=== PATIENT | male | born 1960 | race American Indian/Alaskan Native ===

== ENCOUNTER 2019-11-01 09:46 | Inpatient (IN) | payer OTHER ==
[2019-11-01] MEDS ORDERED: ASPIRIN 325 MG TAB PO ONE (10:09)
--- NOTE | 2019-11-01 10:23 | Emergency Department Report ---
ED Chest Pain HPI - General Chief Complaint: Chest Pain Stated Complaint: CHEST PAIN Time Seen by Provider: 11/01/19 10:15 Source: patient Mode of arrival: Ambulatory Limitations: No Limitations - History of Present Illness Initial Comments: Patient is a 59-year-old gentleman who is presenting with chest discomfort for the last 4 days. Patient states that he is mostly feeling the pain while at work. 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 States he does not have pain all the time with pushing move motion. States pain is slight when he is walking. Pain at its worst was a 6 out of 10 in severity. States that he took off from work yesterday and laid in bed most of the day and felt fine. Patient went back to work today and started having the discomfort. He is denying any shortness of breath cough cold congestion fevers chills nausea vomiting or diarrhea. Patient has no past medical history that he knows of. Patient has not had this complaint in the past. - Related Data Allergies Allergy/AdvReac Type Severity Reaction Status Date / Time No Known Allergies Allergy Unverified 11/01/19 09:49 Heart Score - HEART Score History: Moderately suspicious EKG: Non-specific Age: 45-65 Risk factors: 1-2 risk factors Troponin: 1-3x normal limit HEART Score: 5 ED Review of Systems ROS: Stated complaint: CHEST PAIN Other details as noted in HPI Comment: All other systems reviewed and negative ED Past Medical Hx - Past Medical History Previous Medical History?: No - Surgical History Past Surgical History?: Yes Additional Surgical History: right inquinal hernia - Social History Smoking Status: Never Smoker Substance Use Type: None ED Physical Exam - General Limitations: No Limitations General appearance: alert, in no apparent distress - Head Head exam: Present: atraumatic, normocephalic - Eye Eye exam: Present: normal appearance - ENT ENT exam: Present: normal orophraynx, mucous membranes moist - Neck Neck exam: Present: normal inspection - Respiratory Respiratory exam: Present: normal lung sounds bilaterally. Absent: respiratory distress, wheezes, rales, rhonchi, chest wall tenderness - Cardiovascular Cardiovascular Exam: Present: regular rate, normal rhythm. Absent: normal heart sounds, systolic murmur, diastolic murmur, rubs, gallop - GI/Abdominal GI/Abdominal exam: Present: soft, normal bowel sounds. Absent: distended, tenderness, guarding, rebound - Rectal Rectal exam: Present: deferred - Extremities Exam Extremities exam: Present: normal inspection - Back Exam Back exam: Present: normal inspection - Neurological Exam Neurological exam: Present: alert, oriented X3 - Psychiatric Psychiatric exam: Present: normal affect, normal mood - Skin Skin exam: Present: warm, dry, intact, normal color. Absent: rash ED Course Vital Signs 11/01/19 09:51 Temperature 98.7 F Pulse Rate 106 H Respiratory 18 Rate Blood Pressure 152/90 O2 Sat by Pulse 99 Oximetry TEJ score - Tej Score Age > 65: (0) No Aspirin use within the Past 7 Days: (0) No 3 or more CAD Risk Factors: (0) No 2 or more Angina events in past 24 hrs: (1) Yes Known CAD with more than 50% Stenosis: (0) No Elevated Cardiac Markers: (1) Yes ST Deviation Greater than 0.5mm: (0) No TEJ Score: 2 ED Medical Decision Making - Lab Data Result diagrams: 11/01/19 10:24 11/01/19 10:24 Lab Results 11/01/19 11/01/19 Range/Units 10:24 10:24 WBC 10.0 (4.5-11.0) K/mm3 RBC 4.88 (3.65-5.03) M/mm3 Hgb 15.7 H (11.8-15.2) gm/dl Hct 46.0 H (35.5-45.6) % MCV 94 (84-94) fl MCH 32 (28-32) pg MCHC 34 (32-34) % RDW 12.1 L (13.2-15.2) % Plt Count 164 (140-440) K/mm3 Lymph % (Auto) 10.4 L (13.4-35.0) % Gordon % (Auto) 4.9 (0.0-7.3) % Eos % (Auto) 0.8 (0.0-4.3) % Baso % (Auto) 0.3 (0.0-1.8) % Lymph # (Auto) 1.0 L (1.2-5.4) K/mm3 Gordon # (Auto) 0.5 (0.0-0.8) K/mm3 Eos # (Auto) 0.1 (0.0-0.4) K/mm3 Baso # (Auto) 0.0 (0.0-0.1) K/mm3 Seg Neutrophils % 83.6 H (40.0-70.0) % Seg Neutrophils # 8.4 H (1.8-7.7) K/mm3 Sodium 139 (137-145) mmol/L Potassium 4.1 (3.6-5.0) mmol/L Chloride 99.2 (98-107) mmol/L Carbon Dioxide 24 (22-30) mmol/L Anion Gap 20 mmol/L BUN 12 (9-20) mg/dL Creatinine 0.9 (0.8-1.3) mg/dL Estimated GFR > 60 ml/min BUN/Creatinine Ratio 13 % Glucose 163 H (75-100) mg/dL Calcium 9.6 (8.4-10.2) mg/dL Troponin T 0.313 H* (0.00-0.029) ng/mL - EKG Data -: EKG Interpreted by Tn - EKG Data 11/01/19 11:22 EKG shows a sinus rhythm with a rate of 99. [place] is normal intervals are normal. There is no ST segment elevation or depression. He does have Q waves in the anterior septal leads. Time of interpretation 1005 - Radiology Data Patient: ERNIE MENDIETA MR#: [id number] : 1960 Acct:[id number] Age/Sex: 59 / M ADM Date: 11/01/19 Loc: ED Attending Dr: Ordering Physician: MILLIE BROWNLEE MD Date of Service: 11/01/19 Procedure(s): XR chest 1V ap Accession Number(s): [id number] cc: MILLIE BROWNLEE MD Fluoro Time In Minutes: CHEST 1 VIEW 1027 INDICATION / CLINICAL INFORMATION: Chest Pain COMPARISON: None available. FINDINGS: SUPPORT DEVICES: None HEART / MEDIASTINUM: No significant abnormality. LUNGS / PLEURA: Poor degree of inspiration is seen. Slight right basilar atelectatic changes are noted. No definite areas of consolidation are seen. No pneumothorax. ADDITIONAL FINDINGS: No significant additional findings. 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 I asked the patient to push me away during the physical exam and he says there is no pain with movement of his arms with pushing while stationary is only when he is walking and pushing his tool cart. Patient is EKG did not show acute MD however the patient did have elevation of his troponin. Cardiology was consulted and will see the patient in the emergency department. Patient started on heparin drip. Patient has some minimal pain still in the emergency department and had a nitro paste placed on his anterior chest was given a dose of morphine. Patient given aspirin on arrival. Patient be admitted to the hospitalist service. Critical Care Time: Yes (30) Critical care attestation.: If time is entered above; I have spent that time in minutes in the direct care of this critically ill patient, excluding procedure time. ED Disposition Clinical Impression: NSTEMI (non-ST elevated myocardial infarction), Hyperglycemia Disposition: DC-09 OP ADMIT IP TO THIS HOSP Is pt being admited?: Yes Does the pt Need Aspirin: No Condition: Stable Time of Disposition: 11:25
--- NOTE | 2019-11-01 10:44 | XRay Report ---
CHEST 1 VIEW 1027 INDICATION / CLINICAL INFORMATION: Chest Pain COMPARISON: None available. FINDINGS: SUPPORT DEVICES: None HEART / MEDIASTINUM: No significant abnormality. LUNGS / PLEURA: Poor degree of inspiration is seen. Slight right basilar atelectatic changes are note d. No definite areas of consolidation are seen. No pneumothorax. ADDITIONAL FINDINGS: No significant additional findings. IMPRESSION: No significant acute abnormality Signer Name: Jesus Le MD Signed: 11/01/2019 10:39 AM Workstation Name: [id number]
[2019-11-01 10:48] LABS: Basophils % (Auto) 0.3 % (0.0-1.8); Eosinophils # (Auto) 0.1 K/mm3 (0.0-0.4); Eosinophils % (Auto) 0.8 % (0.0-4.3); Hemoglobin 15.7 gm/dl (11.8-15.2); Lymphocytes % (Auto) 10.4 % (13.4-35.0); Mean Corpuscular HGB Conc 34 % (32-34); Mean Corpuscular Volume 94 fl (84-94); Monocytes # (Auto) 0.5 K/mm3 (0.0-0.8); Monocytes % (Auto) 4.9 % (0.0-7.3); Platelet Count 164 K/mm3 (140-440); Red Blood Count 4.88 M/mm3 (3.65-5.03); Red Cell Distribution Width 12.1 % (13.2-15.2)
[2019-11-01 11:05] LABS: BUN/Creatinine Ratio 13; Blood Urea Nitrogen 12 mg/dL (9-20); Calcium 9.6 mg/dL (8.4-10.2); Hemolysis Index 6
[2019-11-01] MEDS ORDERED: HEPARIN 10,000 UNITS/10 ML VIAL IV ONE (11:15)
[2019-11-01] MEDS ORDERED: ONDANSETRON 4 MG/2 ML INJ IV ONE (11:19)
[2019-11-01] MEDS ORDERED: NITROGLYCERIN 2% OINT 1 GM TP ONE (11:19)
[2019-11-01] MEDS ORDERED: MORPHINE 4 MG/1 ML INJ IV ONE (11:19)
[2019-11-01 11:23] LABS: HDL Cholesterol 43 mg/dL (40-59); LDL Cholesterol,Direct 155 mg/dL (50-130)
[2019-11-01] MEDS: HEPARIN/ 0.45% NACL DRIP 25,000 UNIT/500 ML BAG IV SCH ×2 (11:46→17:15)
--- NOTE | 2019-11-01 12:19 | Consultation ---
History of Present Illness Consult date: 11/01/19 Requesting physician: MILLIE BROWNLEE Consult reason: other (NSTEMI) History of present illness: Pt is a 59 y.o. AA male with no known significant past medical hx who presented with complaints of intermittent substernal chest pain since x 3 days prior to arrival. Pt describes pain as a burning sensation and states it is worse with exertion and relieved by rest. He also notes mild SOB. Pt denies any additional cardiac complaints. No recent fever/chills. Michelle significantly elevated upon arrival. ECG reveals no acute ischemic changes. No acute findings on CXR. No previous cardiac workup available for review. Past History Past Medical History: No medical history Past Surgical History: Other (R inguinal hernia repair > 10 yrs ago) Social history: denies: smoking, alcohol abuse Family history: no significant family history Medications and Allergies Allergies Allergy/AdvReac Type Severity Reaction Status Date / Time No Known Allergies Allergy Unverified 11/01/19 09:49 Active Meds: Active Medications Heparin Sodium/Sodium Chloride (Heparin/ 0.45% Nacl-25,000 Unit/500 Ml) 25,000 unit in 500 mls @ 20 mls/hr IV TITRATE MARLA; Protocol Last Admin: 11/01/19 11:46 Dose: 1,000 units/hr, 20 mls/hr Documented by: Review of Systems Constitutional: no fever, no chills, no sweats, no fatigue Ears, nose, mouth and throat: no nasal congestion, no sore throat Cardiovascular: chest pain, shortness of breath, no orthopnea, no palpitations, no edema, no syncope, no lightheadedness, no dyspnea on exertion, no paroxysmal nocturnal dyspnea, no claudication Respiratory: shortness of breath, no cough, no dyspnea on exertion Gastrointestinal: no abdominal pain, no nausea, no vomiting, no diarrhea, no constipation Genitourinary Male: no dysuria, no flank pain Musculoskeletal: no neck stiffness, no neck pain, no myalgias Integumentary: no rash, no wounds Neurological: no head injury, no paralysis, no weakness, no parathesias, no numbness, no tingling, no seizures, no syncope, no vertigo, no headaches Endocrine: no cold intolerance, no heat intolerance, no polydipsia, no polyuria Hematologic/Lymphatic: no easy bruising, no easy bleeding Allergic/Immunologic: no urticaria Physical Examination Last Vital Signs Temp 98.7 F 11/01/19 09:51 Pulse 91 H 11/01/19 12:00 Resp 13 11/01/19 12:00 BP 128/81 11/01/19 12:00 Pulse Ox 99 11/01/19 09:51 General appearance: no acute distress HEENT: Positive: EOMI, Normocephaly, Mucus Membranes Moist Neck: Positive: neck supple, trachea midline. Negative: JVD/HJR Cardiac: Positive: Reg Rate and Rhythm, S1/S2. Negative: Audible Murmur Lungs: Positive: clear to auscultation Neuro: Positive: Grossly Intact Abdomen: Positive: Soft, Active Bowel Sounds. Negative: Tender Skin: Negative: Rash Musculoskeletal: No Pain, Normal Range of Motion Extremities: Present: upper extr. pulses, lower extr. pulses. Absent: edema Results 11/01/19 10:24 11/01/19 10:24 Lipids 11/01/19 Range/Units 10:24 Triglycerides 168 H (2-149) mg/dL Cholesterol 215 H (50-199) mg/dL HDL Cholesterol 43 (40-59) mg/dL Cholesterol/HDL Ratio 5.00 % CBC 11/01/19 Range/Units 10:24 WBC 10.0 (4.5-11.0) K/mm3 RBC 4.88 (3.65-5.03) M/mm3 Hgb 15.7 H (11.8-15.2) gm/dl Hct 46.0 H (35.5-45.6) % Plt Count 164 (140-440) K/mm3 Lymph # (Auto) 1.0 L (1.2-5.4) K/mm3 [place] # (Auto) 0.5 (0.0-0.8) K/mm3 Eos # (Auto) 0.1 (0.0-0.4) K/mm3 Baso # (Auto) 0.0 (0.0-0.1) K/mm3 Comprehensive Metabolic Panel 11/01/19 Range/Units 10:24 Sodium 139 (137-145) mmol/L Potassium 4.1 (3.6-5.0) mmol/L Chloride 99.2 (98-107) mmol/L Carbon Dioxide 24 (22-30) mmol/L BUN 12 (9-20) mg/dL Creatinine 0.9 (0.8-1.3) mg/dL Glucose 163 H (75-100) mg/dL Calcium 9.6 (8.4-10.2) mg/dL - Imaging and Cardiology Echo: pending Cardiac cath: pending EKG: report reviewed, image reviewed - EKG Interpretation EKG: no acute changes EKG interpretations - EKG Sinus rhythms and dysrhythmias: sinus rhythm Repolarization changes or abnormalities: nonspecific abnormality, ST segment, and/or T wave Assessment and Plan Plan for [facility] Mon AM. NPO after midnight Sun. Initiate heparin drip. Continue until 4 hours prior to planned procedure. Initiate bASA and statin. Obtain echo. Further recommendations to follow per hospital course. Pt seen in conjunction with Dr. Sanchez, who agrees with the assessment and plan of care. - Patient Problems (1) NSTEMI (non-ST elevated myocardial infarction) Current Visit: Yes Status: Acute (2) HLD (hyperlipidemia) Current Visit: Yes Status: Chronic Qualifiers: Hyperlipidemia type: mixed hyperlipidemia Qualified Code(s): E78.2 - Mixed hyperlipidemia (3) Hyperglycemia Current Visit: Yes Status: Acute
[2019-11-01 12:26] LABS: INR 1.02 (0.87-1.13)
[2019-11-01 12:27] LABS: Partial Thromboplastin Time 27.4 Sec. (24.2-36.6)
[2019-11-01] MEDS ORDERED: SODIUM CHLORIDE 0.9% 500 ML 500 ML IV SCH (13:00)
--- NOTE | 2019-11-01 13:05 | History and Physical Report ---
History of Present Illness Date of examination: 11/01/19 Date of admission: 11/01/2019 Chief complaint: Chest pain History of present illness: 59-year-old male with no previous medical history admitted with a chief complaint of chest pain. Patient stated that about 2 days prior to presentation, he started having chest pain while at work. Chest pain persisted and the next day, he could not go to work due to chest pain. He returned to work on day of presentation, and noted that he was having severe chest pain with minimal exertion. He denies any shortness of breath or palpitation. He felt like something was wrong so he decided to come to the hospital for further evaluation. He denies any prior history of hypertension, diabetes, coronary artery disease. He denies any known family history of coronary artery disease. Here in the ER, his EKG showed no acute ischemic changes. His troponin was 0.03. Cardiology was consulted for further evaluation. Patient was admitted for management of NSTEMI. Past History Past Medical History: No medical history Past Surgical History: Other (R inguinal hernia repair > 10 yrs ago) Social history: no significant social history. denies: smoking, alcohol abuse Family history: no significant family history Medications and Allergies Allergies Allergy/AdvReac Type Severity Reaction Status Date / Time No Known Allergies Allergy Unverified 11/01/19 09:49 Active Meds: Active Medications Aspirin (Baby Aspirin) 81 mg PO QDAY MARLA Atorvastatin Calcium (Lipitor) 40 mg PO QHS MARLA Heparin Sodium/Sodium Chloride (Heparin/ 0.45% Nacl-25,000 Unit/500 Ml) 25,000 unit in 500 mls @ 20 mls/hr IV TITRATE MARLA; Protocol Stop: 11/03/19 04:00 Last Admin: 11/01/19 11:46 Dose: 1,000 units/hr, 20 mls/hr Documented by: Sodium Chloride (Nacl 0.9% 500 Ml) 500 mls @ 50 mls/hr IV DIRECT MARLA Stop: 11/01/19 22:59 Review of Systems Cardiovascular: chest pain Exam - Constitutional Vitals: Temp Pulse Resp BP Pulse Ox 98.7 F 91 H 13 128/81 99 11/01/19 09:51 11/01/19 12:00 11/01/19 12:00 11/01/19 12:00 11/01/19 09:51 General appearance: Present: no acute distress, well-nourished - EENT Eyes: Present: PERRL ENT: hearing intact, clear oral mucosa - Neck Neck: Present: supple, normal ROM - Respiratory Respiratory effort: normal Respiratory: bilateral: CTA - Cardiovascular Heart Sounds: Present: S1 & S2. Absent: rub, click - Extremities Extremities: pulses symmetrical, No edema Peripheral Pulses: within normal limits - Abdominal General gastrointestinal: Present: soft, non-tender, non-distended, normal bowel sounds Male genitourinary: Present: normal - Integumentary Integumentary: Present: clear, warm, dry - Musculoskeletal Musculoskeletal: gait normal, strength equal bilaterally - Psychiatric Psychiatric: appropriate mood/affect, intact judgment & insight - Neurologic Neurologic: CNII-XII intact, moves all extremities HEART Score - HEART Score EKG: Non-specific Age: 45-65 Risk factors: 1-2 risk factors Troponin: Troponin T 1.390 ng/mL (0.00-0.029) H* D 11/01/19 12:17 Troponin: 1-3x normal limit Results - Labs CBC & Chem 7: 11/01/19 10:24 11/01/19 10:24 Labs: Laboratory Last Values WBC 10.0 K/mm3 (4.5-11.0) 11/01/19 10:24 RBC 4.88 M/mm3 (3.65-5.03) 11/01/19 10:24 Hgb 15.7 gm/dl (11.8-15.2) H 11/01/19 10:24 Hct 46.0 % (35.5-45.6) H 11/01/19 10:24 MCV 94 fl (84-94) 11/01/19 10:24 MCH 32 pg (28-32) 11/01/19 10:24 MCHC 34 % (32-34) 11/01/19 10:24 RDW 12.1 % (13.2-15.2) L 11/01/19 10:24 Plt Count 164 K/mm3 (140-440) 11/01/19 10:24 Lymph % (Auto) 10.4 % (13.4-35.0) L 11/01/19 10:24 Dixon % (Auto) 4.9 % (0.0-7.3) 11/01/19 10:24 Eos % (Auto) 0.8 % (0.0-4.3) 11/01/19 10:24 Baso % (Auto) 0.3 % (0.0-1.8) 11/01/19 10:24 Lymph # (Auto) 1.0 K/mm3 (1.2-5.4) L 11/01/19 10:24 Dixon # (Auto) 0.5 K/mm3 (0.0-0.8) 11/01/19 10:24 Eos # (Auto) 0.1 K/mm3 (0.0-0.4) 11/01/19 10:24 Baso # (Auto) 0.0 K/mm3 (0.0-0.1) 11/01/19 10:24 Seg Neutrophils % 83.6 % (40.0-70.0) H 11/01/19 10:24 Seg Neutrophils # 8.4 K/mm3 (1.8-7.7) H 11/01/19 10:24 PT 13.5 Sec. (12.2-14.9) 11/01/19 11:20 INR 1.02 (0.87-1.13) 11/01/19 11:20 APTT 27.4 Sec. (24.2-36.6) 11/01/19 11:20 Sodium 139 mmol/L (137-145) 11/01/19 10:24 Potassium 4.1 mmol/L (3.6-5.0) 11/01/19 10:24 Chloride 99.2 mmol/L (98-107) 11/01/19 10:24 Carbon Dioxide 24 mmol/L (22-30) 11/01/19 10:24 Anion Gap 20 mmol/L 11/01/19 10:24 BUN 12 mg/dL (9-20) 11/01/19 10:24 Creatinine 0.9 mg/dL (0.8-1.3) 11/01/19 10:24 Estimated GFR > 60 ml/min 11/01/19 10:24 BUN/Creatinine Ratio 13 % 11/01/19 10:24 Glucose 163 mg/dL (75-100) H 11/01/19 10:24 Calcium 9.6 mg/dL (8.4-10.2) 11/01/19 10:24 Troponin T 1.390 ng/mL (0.00-0.029) H* D 11/01/19 12:17 Triglycerides 168 mg/dL (2-149) H 11/01/19 10:24 Cholesterol 215 mg/dL (50-199) H 11/01/19 10:24 LDL Cholesterol Direct 155 mg/dL (50-130) H 11/01/19 10:24 HDL Cholesterol 43 mg/dL (40-59) 11/01/19 10:24 Cholesterol/HDL Ratio 5.00 % 11/01/19 10:24 Danielson/IV: IV Catheter Type [Right INT / Saline Lock Forearm] Assessment and Plan - Patient Problems (1) NSTEMI (non-ST elevated myocardial infarction) Current Visit: Yes Status: Acute Plan to address problem: Continue aspirin and statins Continue Nitropaste/patch Heparin drip Cardiology consulted Plan for possible cardiac cath (2) Hyperglycemia Current Visit: Yes Status: Acute Plan to address problem: Has elevated blood glucose. He denies any history of diabetes Check hemoglobin A1c (3) DVT prophylaxis Current Visit: Yes Status: Acute Plan to address problem: Heparin 3 times daily
[2019-11-01] MEDS ORDERED: MORPHINE 2 MG/1 ML INJ IV PRN (16:07)
[2019-11-02] MEDS: ASPIRIN 81 MG TAB CHEW PO SCH (10:09)
--- NOTE | 2019-11-02 11:02 | Progress Note ---
Assessment and Plan Echo 11/01/2019 reviewed - multiple regional wall motion abnormalities, EF 35- 40%, trace AR, mild MR. Plan for LHC in AM. NPO after midnight. Continue heparin drip until 4 hours prior to planned procedure. Continue bASA and statin. Gentle IVF hydration. Start low dose BB. Will initiate ACEi/ARB when BPs able to tolerate. Pt seen in conjunction with Dr. Sanchez, who agrees with the assessment and plan of care. - Patient Problems (1) NSTEMI (non-ST elevated myocardial infarction) Current Visit: Yes Status: Acute (2) Cardiomyopathy Current Visit: Yes Status: Acute (3) NSVT (nonsustained ventricular tachycardia) Current Visit: Yes Status: Acute (4) HLD (hyperlipidemia) Current Visit: Yes Status: Chronic Qualifiers: Hyperlipidemia type: mixed hyperlipidemia Qualified Code(s): E78.2 - Mixed hyperlipidemia (5) Hyperglycemia Current Visit: Yes Status: Acute Subjective Date of service: 11/02/19 Principal diagnosis: NSTEMI Interval history: Pt resting comfortably in bed upon exam. He states chest pain has resolved. No additional cardiac complaints. Tele reviewed - SR 90s w/NSVT x 9 10/31 @ 1556. Objective Last Vital Signs Temp 98.2 F 11/02/19 05:23 Pulse 80 11/02/19 05:23 Resp 18 11/02/19 05:23 BP 100/51 11/02/19 05:23 Pulse Ox 94 11/02/19 05:23 - Physical Examination General: No Apparent Distress HEENT: Positive: EOMI, Normocephaly, Mucus Membranes Moist Neck: Positive: neck supple, trachea midline. Negative: JVD/HJR Cardiac: Positive: Reg Rate and Rhythm, S1/S2 Lungs: Positive: clear to auscultation Neuro: Positive: Grossly Intact Abdomen: Positive: Soft, Active Bowel Sounds. Negative: Tender Skin: Negative: Rash Musculoskeletal: No Pain, Normal Range of Motion Extremities: Present: upper extr. pulses, lower extr. pulses. Absent: edema - Labs and Meds Coagulation 11/01/19 Range/Units 11:20 PT 13.5 (12.2-14.9) Sec. INR 1.02 (0.87-1.13) APTT 27.4 (24.2-36.6) Sec. Lipids 11/01/19 Range/Units 10:24 Triglycerides 168 H (2-149) mg/dL Cholesterol 215 H (50-199) mg/dL HDL Cholesterol 43 (40-59) mg/dL Cholesterol/HDL Ratio 5.00 % Comprehensive Metabolic Panel 11/01/19 Range/Units 10:24 Sodium 139 (137-145) mmol/L Potassium 4.1 (3.6-5.0) mmol/L Chloride 99.2 (98-107) mmol/L Carbon Dioxide 24 (22-30) mmol/L BUN 12 (9-20) mg/dL Creatinine 0.9 (0.8-1.3) mg/dL Glucose 163 H (75-100) mg/dL Calcium 9.6 (8.4-10.2) mg/dL - Imaging and Cardiology EKG: report reviewed, image reviewed Echo: report reviewed (11/01/2019 - multiple regional wall motion abnormalities, EF 35-40%, trace AR, mild MR) Cardiac cath: pending - Telemetry EKG Rhythm: Sinus Rhythm - EKG Sinus rhythms and dysrhythmias: sinus rhythm Repolarization changes or abnormalities: nonspecific abnormality, ST segment, and/or T wave
[2019-11-02] MEDS ORDERED: SODIUM CHLORIDE 0.9% 500 ML 500 ML IV SCH (12:00)
--- NOTE | 2019-11-02 12:07 | Progress Note ---
Assessment and Plan Assessment and plan: 59-year-old male with no previous medical history admitted with a chief complaint of chest pain. Patient stated that about 2 days prior to presentation, he started having chest pain while at work. Chest pain persisted and the next day, he could not go to work due to chest pain. He returned to work on day of presentation, and noted that he was having severe chest pain with minimal exertion. He denies any shortness of breath or palpitation. He felt like something was wrong so he decided to come to the hospital for further evaluation. He denies any prior history of hypertension, diabetes, coronary artery disease. He denies any known family history of coronary artery disease. Here in the ER, his EKG showed no acute ischemic changes. His troponin was 0.03. Cardiology was consulted for further evaluation. Patient was admitted for management of NSTEMI. 11/01. Plan for C tomorrow. Still on heparin drip. NPO after MN. Cardiology recs appreciated - Patient Problems (1) NSTEMI (non-ST elevated myocardial infarction) Current Visit: Yes Status: Acute Plan to address problem: Continue aspirin and statins Continue Nitropaste/patch Heparin drip Plan for LHC tomorrow as per cardiology (2) Hyperglycemia Current Visit: Yes Status: Acute Plan to address problem: Has elevated blood glucose. He denies any history of diabetes Check hemoglobin A1c (3) DVT prophylaxis Current Visit: Yes Status: Acute Plan to address problem: On hepari drip History Interval history: 59 year old M with no prior medical history here with NSTEMI. He has no chest pain this morning. Still on heparin drip. cardiology is following. Plan for LHC tomorrow am. Hospitalist Physical - Constitutional Vitals: Temp Pulse Resp BP Pulse Ox 98.2 F 73 18 100/51 94 11/02/19 05:23 11/02/19 10:00 11/02/19 05:23 11/02/19 05:23 11/02/19 05:23 General appearance: Present: no acute distress, well-nourished - EENT Eyes: Present: PERRL - Neck Neck: Present: supple, normal ROM - Respiratory Respiratory: bilateral: CTA - Cardiovascular Rhythm: regular Heart Sounds: Present: S1 & S2 - Extremities Extremities: no ischemia, No edema - Abdominal General gastrointestinal: soft, non-tender, non-distended, normal bowel sounds - Psychiatric Psychiatric: appropriate mood/affect - Neurologic Neurologic: CNII-XII intact HEART Score - HEART Score EKG: Non-specific Age: 45-65 Risk factors: 1-2 risk factors Troponin: Troponin T 1.390 ng/mL (0.00-0.029) H* D 11/01/19 12:17 Troponin: 1-3x normal limit Results - Labs CBC & Chem 7: 11/01/19 10:24 11/01/19 10:24 Labs: Laboratory Last Values WBC 10.0 K/mm3 (4.5-11.0) 11/01/19 10:24 RBC 4.88 M/mm3 (3.65-5.03) 11/01/19 10:24 Hgb 15.7 gm/dl (11.8-15.2) H 11/01/19 10:24 Hct 46.0 % (35.5-45.6) H 11/01/19 10:24 MCV 94 fl (84-94) 11/01/19 10:24 MCH 32 pg (28-32) 11/01/19 10:24 MCHC 34 % (32-34) 11/01/19 10:24 RDW 12.1 % (13.2-15.2) L 11/01/19 10:24 Plt Count 164 K/mm3 (140-440) 11/01/19 10:24 Lymph % (Auto) 10.4 % (13.4-35.0) L 11/01/19 10:24 [place] % (Auto) 4.9 % (0.0-7.3) 11/01/19 10:24 Eos % (Auto) 0.8 % (0.0-4.3) 11/01/19 10:24 Baso % (Auto) 0.3 % (0.0-1.8) 11/01/19 10:24 Lymph # (Auto) 1.0 K/mm3 (1.2-5.4) L 11/01/19 10:24 [place] # (Auto) 0.5 K/mm3 (0.0-0.8) 11/01/19 10:24 Eos # (Auto) 0.1 K/mm3 (0.0-0.4) 11/01/19 10:24 Baso # (Auto) 0.0 K/mm3 (0.0-0.1) 11/01/19 10:24 Seg Neutrophils % 83.6 % (40.0-70.0) H 11/01/19 10:24 Seg Neutrophils # 8.4 K/mm3 (1.8-7.7) H 11/01/19 10:24 PT 13.5 Sec. (12.2-14.9) 11/01/19 11:20 INR 1.02 (0.87-1.13) 11/01/19 11:20 APTT 27.4 Sec. (24.2-36.6) 11/01/19 11:20 Heparin Anti-Xa Level 0.30 U.I./ml (0.3-0.7) 11/02/19 09:04 Sodium 139 mmol/L (137-145) 11/01/19 10:24 Potassium 4.1 mmol/L (3.6-5.0) 11/01/19 10:24 Chloride 99.2 mmol/L (98-107) 11/01/19 10:24 Carbon Dioxide 24 mmol/L (22-30) 11/01/19 10:24 Anion Gap 20 mmol/L 11/01/19 10:24 BUN 12 mg/dL (9-20) 11/01/19 10:24 Creatinine 0.9 mg/dL (0.8-1.3) 11/01/19 10:24 Estimated GFR > 60 ml/min 11/01/19 10:24 BUN/Creatinine Ratio 13 % 11/01/19 10:24 Glucose 163 mg/dL (75-100) H 11/01/19 10:24 Calcium 9.6 mg/dL (8.4-10.2) 11/01/19 10:24 Troponin T 1.390 ng/mL (0.00-0.029) H* D 11/01/19 12:17 Triglycerides 168 mg/dL (2-149) H 11/01/19 10:24 Cholesterol 215 mg/dL (50-199) H 11/01/19 10:24 LDL Cholesterol Direct 155 mg/dL (50-130) H 11/01/19 10:24 HDL Cholesterol 43 mg/dL (40-59) 11/01/19 10:24 Cholesterol/HDL Ratio 5.00 % 11/01/19 10:24 - Diagnostic Impressions Diagnostic Impressions: Echocardiogram 11/01/19 12:24 Transthoracic Echocardiogram Indication: NSTEMI BP: 123/73 HR: 80 Conclusions *The left ventricular chamber size is normal. *There are multiple regional wall motion abnormalities. *The estimated ejection fraction is 35-40%. *The basal anteroseptal, basal anterior, mid anteroseptal, mid anterior, mid inferoseptal, apical septal, and apical anterior wall segments are hypokinetic. * *The left atrium is normal in size with no visual thrombus identified. *The right ventricular cavity size is normal. *The right ventricular global systolic function is normal. *The aortic valve leaflets are mildly thickened. *There is trace of aortic regurgitation. *There is mild mitral regurgitation. *The right ventricular systolic pressure is calculated at 47 mmHg. *The inferior vena cava appears normal in size. Findings Left Ventricle: The left ventricular chamber size is normal. There are multiple regional wall motion abnormalities. Global left ventricular systolic function is mild to moderately decreased. The estimated ejection fraction is 35-40%. Abnormal left ventricular diastolic function is observed. Abnormal left ventricular diastolic filling is observed, consistent with impaired relaxation. The basal anterolateral, basal inferolateral, basal inferior, basal inferoseptal, mid anterolateral, mid inferolateral, mid inferior, apical lateral, and apical inferior wall segments are normal. The basal anteroseptal, basal anterior, mid anteroseptal, mid anterior, mid inferoseptal, apical septal, and apical anterior wall segments are hypokinetic. Left Atrium: The left atrium is normal in size with no visual thrombus identified. Right Ventricle: The right ventricular cavity size is normal. The right ventricular global systolic function is normal. Right Atrium: The right atrium appears normal. The interatrial septum appears normal. Aortic Valve: The aortic valve structure is normal. The aortic valve leaflets are mildly thickened. There is trace of aortic regurgitation. There is no evidence of aortic stenosis. Mitral Valve: The mitral valve leaflets appear normal. There is mild mitral regurgitation. There is no evidence of mitral stenosis. Tricuspid Valve: The tricuspid valve leaflets are normal. There is no evidence of tricuspid valve regurgitation. The right ventricular systolic pressure is calculated at 47 mmHg. There is evidence of pulmonary hypertension. There is no tricuspid stenosis. Pulmonic Valve: The pulmonic valve appears normal. There is trace pulmonic regurgitation. There is no pulmonic stenosis. Pericardium: There is no pericardial effusion. Aorta: There is no dilatation of the ascending aorta. There is no dilatation of the aortic arch. There is no dilatation of the descending thoracic aorta. There is no dilatation of the aortic root. Venous: The inferior vena cava appears normal in size. Measurements Chambers 2D Name Value Normal Range IVSd (2D) 0.94 cm (0.6 - 1.1) LVPWd (2D) 0.93 cm (0.6 - 1.1) LVIDd (2D) 4.61 cm (3.7 - 5.6) LVIDs (2D) 3.51 cm (2 - 3.8) LV FS (2D) 23.89 % - EF Teichholz (2D) 47.7 % - Ao root diameter (2D) 2.76 cm (2 - 3.7) Volumes/Mass Name Value Normal Range LA ESV SP 4CH (A/L) 36.27 ml - LA ESV SP 2CH (A/L) 42.46 ml - LA ESV BP (A/L) 40.96 ml - LA ESV SP 4CH (MOD) 32.57 ml - LA ESV SP 2CH (MOD) 40.83 ml - LA ESV BP (MOD) 37.46 ml - LA ESV BP (MOD) index 19.01 ml/m2 - LV EDV SP 4CH (MOD) 79.49 ml - LV ESV SP 4CH (MOD) 39.1 ml - EF SP 4CH (MOD) 50.81 % - LV EDV SP 2CH (MOD) 65.39 ml - LV ESV SP 2CH (MOD) 38.56 ml - EF SP 2CH (MOD) 41.02 % - LV EDV BP 72.08 ml - LV ESV BP 40.38 ml - BP EF (MOD) 43.98 % - Diastolic/Systolic Function Name Value Normal Range MV E-wave Vmax 0.91 m/sec - MV deceleration time 106.68 msec - Aortic Valve Name Value Normal Range AV Vmax 1.19 m/sec - AV VTI 22.04 cm - AV peak gradient 5.63 mmHg - AV mean gradient 3.31 mmHg - LVOT diameter 1.95 cm - LVOT Vmax 1.07 m/sec - LVOT VTI 17.35 cm - LVOT peak gradient 4.55 mmHg - LVOT mean gradient 2.27 mmHg - SV LVOT 52.05 ml - GOLDIE (continuity Vmax) 2.7 cm2 - GOLDIE (continuity VTI) 2.36 cm2 - AR PHT 436.3 msec - AR peak gradient 43.34 mmHg - Tricuspid Valve Name Value Normal Range TR Vmax 3.13 m/sec - TR peak gradient 39.16 mmHg - RAP 8 mmHg - RVSP 47 mmHg - Pulmonic Valve/Qp:Qs Name Value Normal Range PV Vmax 0.95 m/sec - PV peak gradient 3.59 mmHg - NE end-diastolic Vmax 1.2 m/sec - PV acceleration time 137.01 msec - Wallmotion BAS Hypokinetic BA Hypokinetic BAL Normal LOU Normal BI Normal BIS Normal MAS Hypokinetic MA Hypokinetic MAL Normal MIL Normal DC Normal MIS Hypokinetic Hypokinetic AA Hypokinetic AL Normal AI Normal APEX Hypokinetic Danielson/IV: Voiding Method Urinal IV Catheter Type [Right INT / Saline Lock Forearm] Active Medications - Current Medications Current Medications: Generic Name Dose Route Start Last Admin Trade Name Freq PRN Reason Stop Dose Admin Aspirin 81 mg 11/02/19 10:00 11/02/19 10:09 Baby Aspirin PO 81 mg QDAY MARLA Administration Atorvastatin Calcium 80 mg 11/02/19 22:00 Lipitor PO QHS [facility] Heparin Sodium/Sodium Chloride 25,000 unit in 500 mls @ 20 mls/hr 11/01/19 12:00 11/02/19 02:42 Heparin/ 0.45% Nacl-25,000 Unit/500 Ml IV 11/03/19 04:00 1,000 units/hr TITRATE MARLA 20 mls/hr Titration Protocol 1,000 UNITS/HR Sodium Chloride 500 mls @ 50 mls/hr 11/02/19 12:00 Nacl 0.9% 500 Ml IV DIRECT MARLA Metoprolol Tartrate 12.5 mg 11/02/19 22:00 Metoprolol PO BID [facility] Morphine Sulfate 2 mg 11/01/19 16:07 11/01/19 16:21 Morphine IV 2 mg Q4H PRN Administration Pain, Moderate (4-6)
[2019-11-02] MEDS: METOPROLOL TARTRATE 25 MG TAB PO SCH (21:53)
[2019-11-03 07:45] LABS: Basophils % (Auto) 0.2 % (0.0-1.8); Eosinophils # (Auto) 0.8 K/mm3 (0.0-0.4); Eosinophils % (Auto) 8.2 % (0.0-4.3); Hemoglobin 15.9 gm/dl (11.8-15.2); Lymphocytes # (Auto) 2.2 K/mm3 (1.2-5.4); Lymphocytes % (Auto) 23.5 % (13.4-35.0); Mean Corpuscular HGB Conc 34 % (32-34); Mean Corpuscular Volume 95 fl (84-94); Monocytes # (Auto) 1.1 K/mm3 (0.0-0.8); Monocytes % (Auto) 11.6 % (0.0-7.3); Platelet Count 166 K/mm3 (140-440); Red Blood Count 4.98 M/mm3 (3.65-5.03); Red Cell Distribution Width 12.1 % (13.2-15.2)
[2019-11-03 08:07] LABS: BUN/Creatinine Ratio 13; Blood Urea Nitrogen 12 mg/dL (9-20); Calcium 9.7 mg/dL (8.4-10.2); Hemolysis Index 21
[2019-11-03] MEDS ORDERED: HEPARIN/NS 5000 UNIT/500ML 1,000 ML IR ONE (09:23)
[2019-11-03] MEDS ORDERED: SODIUM CHLORIDE 0.9% 500 ML 500 ML ONE ×2 (09:33→10:34)
[2019-11-03] MEDS: fentaNYL 100 MCG/2 ML INJ ONE ×2 (09:53→10:06)
[2019-11-03] MEDS: MIDAZOLAM 2 MG/2 ML INJ ONE ×2 (09:54→10:06)
[2019-11-03] MEDS: LIDOCAINE (2%) 20 MG/1 ML VIAL 20 ML MDV INFILTRATI ONE ×2 (09:54→10:06)
[2019-11-03] MEDS: HEPARIN 10,000 UNITS/10 ML VIAL ONE ×4 (09:54→10:36)
[2019-11-03] MEDS: NITROGLYCERIN SYRINGE 3 ML ONE ×2 (09:55→10:08)
[2019-11-03] MEDS: VERAPAMIL 5 MG/2 ML INJ ONE ×2 (09:55→10:08)
[2019-11-03] MEDS ORDERED: ASPIRIN 81 MG TAB CHEW ONE (10:29)
[2019-11-03] MEDS ORDERED: TICAGRELOR 90 MG TAB ONE (10:29)
--- NOTE | 2019-11-03 10:59 | Progress Note ---
Assessment and Plan pt had pci of lad , has moderate lv dsfyunction on echo, pt on low dose beta antwon, no michell or arb secondary to lower bp, cont asa, brilinta and statin and lopressor and post pci care and possible discharge in am - Patient Problems (1) Acute diastolic congestive heart failure, NYHA class 1 Current Visit: Yes Status: Acute (2) Hyperglycemia Current Visit: Yes Status: Acute (3) NSTEMI (non-ST elevated myocardial infarction) Current Visit: Yes Status: Acute (4) NSVT (nonsustained ventricular tachycardia) Current Visit: Yes Status: Acute (5) HLD (hyperlipidemia) Current Visit: Yes Status: Chronic Qualifiers: Hyperlipidemia type: mixed hyperlipidemia Qualified Code(s): E78.2 - Mixed hyperlipidemia (6) Cardiomyopathy Current Visit: Yes Status: Acute Qualifiers: Cardiomyopathy type: ischemic Qualified Code(s): I25.5 - Ischemic cardiomyopathy Subjective Date of service: 11/03/19 Principal diagnosis: NSTEMI Interval history: intermittent chest pain at times Objective Vital Signs Temp Pulse Resp BP Pulse Ox 11/03/19 10:00 18 96 11/03/19 08:12 98.9 F 66 18 106/64 98 11/03/19 04:13 98.0 F 69 18 105/57 96 11/02/19 23:47 98.0 F 77 18 105/63 98 11/02/19 22:00 77 11/02/19 21:53 76 101/66 11/02/19 17:22 98.2 F 76 18 101/66 97 11/02/19 11:56 98.1 F 76 18 99/61 95 - Physical Examination General: No Apparent Distress HEENT: Positive: EOMI, Normocephaly, Mucus Membranes Moist Neck: Positive: neck supple, trachea midline. Negative: JVD/HJR Cardiac: Positive: Reg Rate and Rhythm Lungs: Positive: clear to auscultation Neuro: Positive: Grossly Intact Abdomen: Positive: Soft, Active Bowel Sounds. Negative: Tender Skin: Negative: Rash Musculoskeletal: No Pain, Normal Range of Motion Extremities: Present: upper extr. pulses, lower extr. pulses. Absent: edema - Labs and Meds Coagulation 11/03/19 Range/Units 07:05 PT 13.3 (12.2-14.9) Sec. INR 1.00 (0.87-1.13) CBC 11/03/19 Range/Units 07:05 WBC 9.3 (4.5-11.0) K/mm3 RBC 4.98 (3.65-5.03) M/mm3 Hgb 15.9 H (11.8-15.2) gm/dl Hct 47.0 H (35.5-45.6) % Plt Count 166 (140-440) K/mm3 Lymph # (Auto) 2.2 (1.2-5.4) K/mm3 [place] # (Auto) 1.1 H (0.0-0.8) K/mm3 Eos # (Auto) 0.8 H (0.0-0.4) K/mm3 Baso # (Auto) 0.0 (0.0-0.1) K/mm3 Comprehensive Metabolic Panel 11/03/19 Range/Units 07:05 Sodium 140 (137-145) mmol/L Potassium 4.2 (3.6-5.0) mmol/L Chloride 100.8 (98-107) mmol/L Carbon Dioxide 31 H D (22-30) mmol/L BUN 12 (9-20) mg/dL Creatinine 0.9 (0.8-1.3) mg/dL Glucose 116 H (75-100) mg/dL Calcium 9.7 (8.4-10.2) mg/dL - Imaging and Cardiology EKG: report reviewed, image reviewed Echo: report reviewed (11/01/2019 - multiple regional wall motion abnormalities, EF 35-40%, trace AR, mild MR) Cardiac cath: report reviewed (lt main patent, lad mid 95% diagonal1 small patent, diagonal 2 ostila 50%, lcx patent om1 patent rca patent and normal lv function, pci of mid lad with juvenal xience 3.5 x 15 mm via radial approach) - Telemetry EKG Rhythm: Sinus Bradycardia - EKG Sinus rhythms and dysrhythmias: sinus rhythm Repolarization changes or abnormalities: nonspecific abnormality, ST segment, and/or T wave
[2019-11-03] MEDS ORDERED: SODIUM CHLORIDE 0.9% 1000 ML 1,000 ML IV SCH (11:00)
[2019-11-03] MEDS ORDERED: traMADol 50 MG TAB PO PRN (11:30)
[2019-11-03] MEDS ORDERED: HYDROcodone/ACETAMINOPHEN 5-325 MG TAB PO PRN (12:00)
--- NOTE | 2019-11-03 12:09 | Cardiac Catherization Report ---
PROCEDURE: Left heart catheterization and percutaneous coronary intervention and intravascular ultrasound report being done on 11/03/2019. CLINICAL INFORMATION: This is a 59-year-old gentleman; denies any hypertension, diabetes, cholesterol; presents with chest pain with non-ST elevation FL. Procedure was done with moderate sedation, started at 10:06, finished at 10:37, which is 31 minutes of moderate sedation. Procedure was performed via the right radial artery, sterile technique, local anesthesia, 6-[place] radial sheath. Left system, JL3.5 catheter, left main is large and patent, bifurcates into large wraparound LAD that has a mid 95% lesion of bifurcating small diagonal 1 is patent. Diagonal 2 is a small caliber vessel, approximately 2 mm but long, has an ostial 50%. Circumflex is patent with mild luminal irregularities and goes into a medium caliber OM1 with mild luminal irregularities. RCA engaged with JR4, medium caliber vessel with moderate to severe tortuosity, patent. PDA and PLV are small to medium caliber vessel, patent with moderate tortuosity. LV gram done in IRISH and CLAUDIO view shows mild lv dsyfunction ef 45% , LVEDP elevated at 31 mmHg, LV is 105. Aortic is 106/65. No gradient across the aortic valve on pullback. PERCUTANEOUS CORONARY INTERVENTION OF THE LEFT ANTERIOR DESCENDIN. Engaged the left system with an EBU 3.5 guiding catheter. 2. Wired the diagonal with a Runthrough wire and wired the LAD with [place] wire. 3. Predilated with a diagonal to the LAD with a 2.0 x 12 balloon at 8 atmospheres. 4. Using the same balloon, I dilated the LAD and the [place] wire at 15 atmospheres. 5. Intravascular ultrasound showed distal reference vessel 3.5. The eccentric plaque diffuse in the mid LAD at the bifurcation. 6. Placed a drug-eluting Xience 3.5 x 15 mm in the mid LAD, removed Runthrough wire and inflated at 15 atmospheres, removed balloon. Excellent angiographic result, reduced stenosis 0%. Same ostial 50% in the diagonal 2 and diagonal 1 is still patent. Multiple angiograms without the wire continued to be SHARIF 3 flow, good stent apposition and expansion. No dissection or perforation noted. 6-[place] guiding catheter taken over guidewire, 6-[place] radial sheath was discontinued. Radial band applied. No hematoma, no bleeding. SUMMARY: 1. Successful PCI of the bifurcating mid LAD lesion with a drug-eluting Xience 3.5 x 15 at 12 atmospheres, ostial diagonal 2 of 50%, diagonal 1 patent, circumflex patent with mild luminal irregularities. OM1 patent with mild luminal irregularities. RCA is a dominant medium caliber and patent, mild lv dsyfunction ef 45% 2. Post-PCI care, aspirin. The patient was loaded with Brilinta, continue 90 twice a day, statin and low dose beta-antwon. Discussed this with the patient in detail. JOB# [id number] KATHLEEN/AMINTA ROBLES
[2019-11-03] MEDS: ASPIRIN 81 MG TAB CHEW PO SCH (13:37)
[2019-11-03] MEDS: METOPROLOL TARTRATE 25 MG TAB PO SCH ×2 (13:43→21:40)
--- NOTE | 2019-11-03 19:59 | Progress Note ---
Assessment and Plan Assessment and plan: 59-year-old male with no previous medical history admitted with a chief complaint of chest pain. Patient stated that about 2 days prior to presentation, he started having chest pain while at work. Chest pain persisted and the next day, he could not go to work due to chest pain. He returned to work on day of presentation, and noted that he was having severe chest pain with minimal exertion. He denies any shortness of breath or palpitation. He felt like something was wrong so he decided to come to the hospital for further evaluation. He denies any prior history of hypertension, diabetes, coronary artery disease. He denies any known family history of coronary artery disease. Here in the ER, his EKG showed no acute ischemic changes. His troponin was 0.03. Cardiology was consulted for further evaluation. Patient was admitted for management of NSTEMI. 11/01. Plan for [facility] tomorrow. Still on heparin drip. NPO after MN. Cardiology recs appreciated 11/02. Had a left heart cath that showed LAD lesion which was stented. Now on aspiring and brilinta. Cardiology following. Plan for discharge in AM - Patient Problems (1) NSTEMI (non-ST elevated myocardial infarction) Current Visit: Yes Status: Acute Plan to address problem: Now s/p LHC with PCI of LAD lesion Continue aspirin and brilinta Cardiology following. Plan for DC in AM (2) DVT prophylaxis Current Visit: Yes Status: Acute Plan to address problem: SCDs History Interval history: 59 year old M with no prior medical history here with NSTEMI.Plan for cath today. Hospitalist Physical - Constitutional Vitals: Temp Pulse Resp BP Pulse Ox 98.0 F 78 18 111/59 96 11/03/19 19:16 11/03/19 19:16 11/03/19 19:16 11/03/19 19:16 11/03/19 19:16 General appearance: Present: no acute distress, well-nourished - EENT Eyes: Present: PERRL - Respiratory Respiratory: bilateral: CTA - Cardiovascular Heart Sounds: Present: S1 & S2 - Abdominal General gastrointestinal: soft, non-tender, non-distended, normal bowel sounds - Psychiatric Psychiatric: appropriate mood/affect - Neurologic Neurologic: CNII-XII intact HEART Score - HEART Score EKG: Non-specific Age: 45-65 Risk factors: 1-2 risk factors Troponin: Troponin T 1.390 ng/mL (0.00-0.029) H* D 11/01/19 12:17 Troponin: 1-3x normal limit Results - Labs CBC & Chem 7: 11/03/19 07:05 11/03/19 07:05 Labs: Laboratory Last Values WBC 9.3 K/mm3 (4.5-11.0) 11/03/19 07:05 RBC 4.98 M/mm3 (3.65-5.03) 11/03/19 07:05 Hgb 15.9 gm/dl (11.8-15.2) H 11/03/19 07:05 Hct 47.0 % (35.5-45.6) H 11/03/19 07:05 MCV 95 fl (84-94) H 11/03/19 07:05 MCH 32 pg (28-32) 11/03/19 07:05 MCHC 34 % (32-34) 11/03/19 07:05 RDW 12.1 % (13.2-15.2) L 11/03/19 07:05 Plt Count 166 K/mm3 (140-440) 11/03/19 07:05 Lymph % (Auto) 23.5 % (13.4-35.0) 11/03/19 07:05 Walker % (Auto) 11.6 % (0.0-7.3) H 11/03/19 07:05 Eos % (Auto) 8.2 % (0.0-4.3) H 11/03/19 07:05 Baso % (Auto) 0.2 % (0.0-1.8) 11/03/19 07:05 Lymph # (Auto) 2.2 K/mm3 (1.2-5.4) 11/03/19 07:05 [place] # (Auto) 1.1 K/mm3 (0.0-0.8) H 11/03/19 07:05 Eos # (Auto) 0.8 K/mm3 (0.0-0.4) H 11/03/19 07:05 Baso # (Auto) 0.0 K/mm3 (0.0-0.1) 11/03/19 07:05 Seg Neutrophils % 56.5 % (40.0-70.0) 11/03/19 07:05 Seg Neutrophils # 5.3 K/mm3 (1.8-7.7) 11/03/19 07:05 PT 13.3 Sec. (12.2-14.9) 11/03/19 07:05 INR 1.00 (0.87-1.13) 11/03/19 07:05 APTT 27.4 Sec. (24.2-36.6) 11/01/19 11:20 Heparin Anti-Xa Level 0.22 U.I./ml (0.3-0.7) L 11/03/19 13:52 Sodium 140 mmol/L (137-145) 11/03/19 07:05 Potassium 4.2 mmol/L (3.6-5.0) 11/03/19 07:05 Chloride 100.8 mmol/L (98-107) 11/03/19 07:05 Carbon Dioxide 31 mmol/L (22-30) H D 11/03/19 07:05 Anion Gap 12 mmol/L 11/03/19 07:05 BUN 12 mg/dL (9-20) 11/03/19 07:05 Creatinine 0.9 mg/dL (0.8-1.3) 11/03/19 07:05 Estimated GFR > 60 ml/min 11/03/19 07:05 BUN/Creatinine Ratio 13 % 11/03/19 07:05 Glucose 116 mg/dL (75-100) H 11/03/19 07:05 POC Glucose 118 (70-105) H 11/03/19 06:32 Hemoglobin A1c 5.3 % (4-6) 11/03/19 07:05 Calcium 9.7 mg/dL (8.4-10.2) 11/03/19 07:05 Troponin T 1.390 ng/mL (0.00-0.029) H* D 11/01/19 12:17 Triglycerides 168 mg/dL (2-149) H 11/01/19 10:24 Cholesterol 215 mg/dL (50-199) H 11/01/19 10:24 LDL Cholesterol Direct 155 mg/dL (50-130) H 11/01/19 10:24 HDL Cholesterol 43 mg/dL (40-59) 11/01/19 10:24 Cholesterol/HDL Ratio 5.00 % 11/01/19 10:24 - Diagnostic Impressions Diagnostic Impressions: Echocardiogram 11/01/19 12:24 Transthoracic Echocardiogram Indication: NSTEMI BP: 123/73 HR: 80 Conclusions *The left ventricular chamber size is normal. *There are multiple regional wall motion abnormalities. *The estimated ejection fraction is 35-40%. *The basal anteroseptal, basal anterior, mid anteroseptal, mid anterior, mid inferoseptal, apical septal, and apical anterior wall segments are hypokinetic. * *The left atrium is normal in size with no visual thrombus identified. *The right ventricular cavity size is normal. *The right ventricular global systolic function is normal. *The aortic valve leaflets are mildly thickened. *There is trace of aortic regurgitation. *There is mild mitral regurgitation. *The right ventricular systolic pressure is calculated at 47 mmHg. *The inferior vena cava appears normal in size. Findings Left Ventricle: The left ventricular chamber size is normal. There are multiple regional wall motion abnormalities. Global left ventricular systolic function is mild to moderately decreased. The estimated ejection fraction is 35-40%. Abnormal left ventricular diastolic function is observed. Abnormal left ventricular diastolic filling is observed, consistent with impaired relaxation. The basal anterolateral, basal inferolateral, basal inferior, basal inferoseptal, mid anterolateral, mid inferolateral, mid inferior, apical lateral, and apical inferior wall segments are normal. The basal anteroseptal, basal anterior, mid anteroseptal, mid anterior, mid inferoseptal, apical septal, and apical anterior wall segments are hypokinetic. Left Atrium: The left atrium is normal in size with no visual thrombus identified. Right Ventricle: The right ventricular cavity size is normal. The right ventricular global systolic function is normal. Right Atrium: The right atrium appears normal. The interatrial septum appears normal. Aortic Valve: The aortic valve structure is normal. The aortic valve leaflets are mildly thickened. There is trace of aortic regurgitation. There is no evidence of aortic stenosis. Mitral Valve: The mitral valve leaflets appear normal. There is mild mitral regurgitation. There is no evidence of mitral stenosis. Tricuspid Valve: The tricuspid valve leaflets are normal. There is no evidence of tricuspid valve regurgitation. The right ventricular systolic pressure is calculated at 47 mmHg. There is evidence of pulmonary hypertension. There is no tricuspid stenosis. Pulmonic Valve: The pulmonic valve appears normal. There is trace pulmonic regurgitation. There is no pulmonic stenosis. Pericardium: There is no pericardial effusion. Aorta: There is no dilatation of the ascending aorta. There is no dilatation of the aortic arch. There is no dilatation of the descending thoracic aorta. There is no dilatation of the aortic root. Venous: The inferior vena cava appears normal in size. Measurements Chambers 2D Name Value Normal Range IVSd (2D) 0.94 cm (0.6 - 1.1) LVPWd (2D) 0.93 cm (0.6 - 1.1) LVIDd (2D) 4.61 cm (3.7 - 5.6) LVIDs (2D) 3.51 cm (2 - 3.8) LV FS (2D) 23.89 % - EF Teichholz (2D) 47.7 % - Ao root diameter (2D) 2.76 cm (2 - 3.7) Volumes/Mass Name Value Normal Range LA ESV SP 4CH (A/L) 36.27 ml - LA ESV SP 2CH (A/L) 42.46 ml - LA ESV BP (A/L) 40.96 ml - LA ESV SP 4CH (MOD) 32.57 ml - LA ESV SP 2CH (MOD) 40.83 ml - LA ESV BP (MOD) 37.46 ml - LA ESV BP (MOD) index 19.01 ml/m2 - LV EDV SP 4CH (MOD) 79.49 ml - LV ESV SP 4CH (MOD) 39.1 ml - EF SP 4CH (MOD) 50.81 % - LV EDV SP 2CH (MOD) 65.39 ml - LV ESV SP 2CH (MOD) 38.56 ml - EF SP 2CH (MOD) 41.02 % - LV EDV BP 72.08 ml - LV ESV BP 40.38 ml - BP EF (MOD) 43.98 % - Diastolic/Systolic Function Name Value Normal Range MV E-wave Vmax 0.91 m/sec - MV deceleration time 106.68 msec - Aortic Valve Name Value Normal Range AV Vmax 1.19 m/sec - AV VTI 22.04 cm - AV peak gradient 5.63 mmHg - AV mean gradient 3.31 mmHg - LVOT diameter 1.95 cm - LVOT Vmax 1.07 m/sec - LVOT VTI 17.35 cm - LVOT peak gradient 4.55 mmHg - LVOT mean gradient 2.27 mmHg - SV LVOT 52.05 ml - GOLDIE (continuity Vmax) 2.7 cm2 - GOLDIE (continuity VTI) 2.36 cm2 - AR PHT 436.3 msec - AR peak gradient 43.34 mmHg - Tricuspid Valve Name Value Normal Range TR Vmax 3.13 m/sec - TR peak gradient 39.16 mmHg - RAP 8 mmHg - RVSP 47 mmHg - Pulmonic Valve/Qp:Qs Name Value Normal Range PV Vmax 0.95 m/sec - PV peak gradient 3.59 mmHg - NH end-diastolic Vmax 1.2 m/sec - PV acceleration time 137.01 msec - Wallmotion BAS Hypokinetic BA Hypokinetic BAL Normal LOU Normal BI Normal BIS Normal MAS Hypokinetic MA Hypokinetic MAL Normal MIL Normal NC Normal MIS Hypokinetic Hypokinetic AA Hypokinetic AL Normal AI Normal APEX Hypokinetic Danielson/IV: Voiding Method Urinal IV Catheter Type [Right INT / Saline Lock Forearm] Active Medications - Current Medications Current Medications: Generic Name Dose Route Start Last Admin Trade Name Freq PRN Reason Stop Dose Admin Hydrocodone Bitart/Acetaminophen 1 each 11/03/19 12:00 11/03/19 16:35 [place] 5/325 PO 1 each Q6HR PRN Administration Pain, Moderate (4-6) Aspirin 81 mg 11/02/19 10:00 11/03/19 13:37 Baby Aspirin PO Not Given QDAY MARLA Atorvastatin Calcium 80 mg 11/02/19 22:00 11/02/19 21:53 Lipitor PO 80 mg QHS MARLA Administration Sodium Chloride 500 mls @ 50 mls/hr 11/02/19 12:00 11/03/19 09:55 Nacl 0.9% 500 Ml IV 100 mls DIRECT MARLA Administration Metoprolol Tartrate 12.5 mg 11/02/19 22:00 11/03/19 13:43 Metoprolol PO 12.5 mg BID MARLA Administration Morphine Sulfate 2 mg 11/01/19 16:07 11/01/19 16:21 Morphine IV 2 mg Q4H PRN Administration Pain, Moderate (4-6) Ticagrelor 90 mg 11/03/19 22:00 Brilinta PO BID MARLA Tramadol HCl 50 mg 11/03/19 11:30 Ultram PO Q4HR PRN Pain, Mild (1-3)
[2019-11-03] MEDS: TICAGRELOR 90 MG TAB PO SCH (21:40)
[2019-11-04 07:48] LABS: Basophils % (Auto) 0.5 % (0.0-1.8); Eosinophils # (Auto) 0.7 K/mm3 (0.0-0.4); Eosinophils % (Auto) 7.6 % (0.0-4.3); Hematocrit 41.4 % (35.5-45.6); Hemoglobin 14.1 gm/dl (11.8-15.2); Lymphocytes # (Auto) 1.4 K/mm3 (1.2-5.4); Lymphocytes % (Auto) 15.9 % (13.4-35.0); Mean Corpuscular HGB Conc 34 % (32-34); Mean Corpuscular Volume 95 fl (84-94); Monocytes # (Auto) 1.1 K/mm3 (0.0-0.8); Monocytes % (Auto) 12.2 % (0.0-7.3); Platelet Count 149 K/mm3 (140-440); Red Blood Count 4.37 M/mm3 (3.65-5.03)
[2019-11-04 08:08] LABS: Creatine Kinase MB 3.9 ng/mL (0.0-4.0)
[2019-11-04 08:11] LABS: BUN/Creatinine Ratio 13; Blood Urea Nitrogen 13 mg/dL (9-20); Calcium 9.2 mg/dL (8.4-10.2); Hemolysis Index 13
[2019-11-04] MEDS: TICAGRELOR 90 MG TAB PO SCH (09:01)
[2019-11-04] MEDS: ASPIRIN 81 MG TAB CHEW PO SCH (09:01)
[2019-11-04] MEDS: METOPROLOL TARTRATE 25 MG TAB PO SCH (09:01)
--- NOTE | 2019-11-04 10:31 | Progress Note ---
Assessment and Plan S/p [facility] yesterday with pci of lad , has moderate lv dsfyunction on echo, pt on low dose beta antwon, no michell or arb secondary to lower bp and intermittent sinus bradycardia, cont asa, brilinta and statin and lopressor. Currently stable cardiac status. Pt may discharge from cardiology standpoint. Follow up in our [place] office with Dr. Sanchez on 11/19/2019 @ 9:15AM. The patient has been seen in conjunction with Dr. Celaya who agrees with the assessment and plan of care. - Patient Problems (1) Acute diastolic congestive heart failure, NYHA class 1 Current Visit: Yes Status: Acute (2) Hyperglycemia Current Visit: Yes Status: Acute (3) NSTEMI (non-ST elevated myocardial infarction) Current Visit: Yes Status: Acute (4) NSVT (nonsustained ventricular tachycardia) Current Visit: Yes Status: Acute (5) HLD (hyperlipidemia) Current Visit: Yes Status: Chronic Qualifiers: Hyperlipidemia type: mixed hyperlipidemia Qualified Code(s): E78.2 - Mixed hyperlipidemia (6) Cardiomyopathy Current Visit: Yes Status: Acute Qualifiers: Cardiomyopathy type: ischemic Qualified Code(s): I25.5 - Ischemic cardiomyopathy (7) CAD (coronary artery disease) Current Visit: Yes Status: Chronic (8) Stented coronary artery Current Visit: Yes Status: Chronic Subjective Date of service: 11/04/19 Principal diagnosis: NSTEMI Interval history: pt resting in bed, no current complaints. in SR on tele HR 90s with SB noted overnight, HR low 43bpm. Objective Last Vital Signs Temp 98.4 F 11/04/19 07:27 Pulse 88 11/04/19 09:01 Resp 18 11/04/19 08:23 BP 109/66 11/04/19 09:01 Pulse Ox 97 11/04/19 08:23 - Physical Examination General: No Apparent Distress HEENT: Positive: EOMI, Normocephaly, Mucus Membranes Moist Neck: Positive: neck supple, trachea midline. Negative: JVD/HJR Cardiac: Positive: Reg Rate and Rhythm, S1/S2 Lungs: Positive: Decreased Breath Sounds Neuro: Positive: Grossly Intact Abdomen: Positive: Soft, Active Bowel Sounds. Negative: Tender Skin: Negative: Rash Musculoskeletal: No Pain, Normal Range of Motion Extremities: Present: upper extr. pulses, lower extr. pulses. Absent: edema - Labs and Meds Cardiac Enzymes 11/04/19 Range/Units 07:29 CK-MB (CK-2) 3.9 (0.0-4.0) ng/mL CBC 11/04/19 Range/Units 07:29 WBC 9.0 (4.5-11.0) K/mm3 RBC 4.37 (3.65-5.03) M/mm3 Hgb 14.1 (11.8-15.2) gm/dl Hct 41.4 (35.5-45.6) % Plt Count 149 (140-440) K/mm3 Lymph # (Auto) 1.4 (1.2-5.4) K/mm3 [place] # (Auto) 1.1 H (0.0-0.8) K/mm3 Eos # (Auto) 0.7 H (0.0-0.4) K/mm3 Baso # (Auto) 0.0 (0.0-0.1) K/mm3 Comprehensive Metabolic Panel 11/04/19 Range/Units 07:29 Sodium 141 (137-145) mmol/L Potassium 4.2 (3.6-5.0) mmol/L Chloride 103.7 (98-107) mmol/L Carbon Dioxide 28 (22-30) mmol/L BUN 13 (9-20) mg/dL Creatinine 1.0 (0.8-1.3) mg/dL Glucose 124 H (75-100) mg/dL Calcium 9.2 (8.4-10.2) mg/dL - Imaging and Cardiology EKG: report reviewed, image reviewed Echo: report reviewed (11/01/2019 - multiple regional wall motion abnormalities, EF 35-40%, trace AR, mild MR) Cardiac cath: report reviewed (lt main patent, lad mid 95% diagonal1 small patent, diagonal 2 ostila 50%, lcx patent om1 patent rca patent and normal lv function, pci of mid lad with juvenal xience 3.5 x 15 mm via radial approach) - Telemetry EKG Rhythm: Sinus Rhythm - EKG Sinus rhythms and dysrhythmias: sinus rhythm Repolarization changes or abnormalities: nonspecific abnormality, ST segment, and/or T wave
[2019-11-04 11:25] VITALS: BP 104/61
--- NOTE | 2019-11-04 16:50 | Discharge Summary ---
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 He denies any prior history of hypertension, diabetes, coronary artery disease. He denies any known family history of coronary artery disease. Here in the ER, his EKG showed no acute ischemic changes. His troponin was 0.03. Cardiology was consulted for further evaluation. Patient started on heparin drip, was admitted for management of NSTEMI. Daily course 11/01. Plan for [facility] tomorrow. Still on heparin drip. NPO after MN. Cardiology recs appreciated. 2D echo showed EF of 35% 11/02. Had a left heart cath that showed LAD lesion which was stented. Now on aspiring and brilinta. Cardiology following. Plan for discharge in AM. 11/03; cardiology cleared for discharge, patient will be discharged home in stable condition with outpatient follow-up. Discharge diagnosis: (1) NSTEMI (non-ST elevated myocardial infarction) Current Visit: Yes Status: Acute Plan to address problem: Now s/p C with PCI of LAD lesion Continue aspirin and brilinta (2) Acute diastolic congestive heart failure, NYHA class 1 Current Visit: Yes Status: Acute (3) NSVT (nonsustained ventricular tachycardia) Current Visit: Yes Status: Acute (4) HLD (hyperlipidemia) Current Visit: Yes Status: Chronic Qualifiers: Hyperlipidemia type: mixed hyperlipidemia Qualified Code(s): E78.2 - Mixed hyperlipidemia (5) Cardiomyopathy Ef 35% Current Visit: Yes Status: Acute Qualifiers: Cardiomyopathy type: ischemic Qualified Code(s): I25.5 - Ischemic cardiomyopathy Hospitalist Physical General appearance: Present: no acute distress, well-nourished - EENT Eyes: Present: PERRL - Respiratory Respiratory: bilateral: CTA - Cardiovascular Heart Sounds: Present: S1 & S2 - Abdominal General gastrointestinal: soft, non-tender, non-distended, normal bowel sounds - Psychiatric Psychiatric: appropriate mood/affect - Neurologic Neurologic: CNII-XII intact Disposition: DC-01 TO HOME OR SELFCARE Time spent for discharge: 34 minutes Core Measure Documentation - Palliative Care Palliative Care/ Comfort Measures: Not Applicable - Core Measures Any of the following diagnoses?: acute UT, heart failure - Acute UT Discharge Requirements Aspirin at discharge: Yes MIN/ARB for LVSD if EF <40%: No Reason for no MIN/ARB: Hypotension Beta antwon at discharge: Yes Statin for LDL = or >100 mg/dl on DC: Yes - Heart Failure Discharge Requirements MIN/ARB for LVSD if EF <40%: No Reason for no MIN/ARB: Hypotension Beta antwon at discharge: Yes Exam - Constitutional Vitals: Temp Pulse Resp BP Pulse Ox 98.8 F 85 17 104/61 97 11/04/19 11:24 11/04/19 11:24 11/04/19 11:24 11/04/19 11:24 11/04/19 11:24 Plan Activity: advance as tolerated Weight Bearing Status: Non-Weight Bearing Diet: low fat, low salt Special Instructions: record daily BP diary Follow up with: PRIMARY CARE, [Primary Care Provider] - 3-5 Days MIRNA KENNEDY MD [Staff Physician] - 7 Days Prescriptions: AtorvaSTATin [Lipitor] 80 mg PO QHS #90 tablet Aspirin [Aspirin BABY CHEW TAB] 81 mg PO QDAY #90 tab.chew Ticagrelor [Brilinta] 90 mg PO BID #120 tablet Metoprolol [Lopressor TAB] 12.5 mg PO BID #120 tablet
== END 2019-11-04 14:31 | disposition home or self-care (01) | DRG 246 ==
LOC: ED 09:46 → 4A 11:26
PROVIDERS: ADMIT Internal Medicine; ATTEND Internal Medicine
PROC: 4A023N7 Measurement of Cardiac Sampling and Pressure, Left Heart, Percutaneous Approach (ICD-10-PCS; principal; 2019-11-03)
PROC: 027034Z Dilation of Coronary Artery, One Artery with Drug-eluting Intraluminal Device, Percutaneous Approach (ICD-10-PCS; 2019-11-03)
DX: I21.4 Non-ST elevation (NSTEMI) myocardial infarction (principal); I50.31 Acute diastolic (congestive) heart failure; I47.1 Supraventricular tachycardia; R73.9 Hyperglycemia, unspecified; E78.5 Hyperlipidemia, unspecified; I25.5 Ischemic cardiomyopathy; I25.10 Atherosclerotic heart disease of native coronary artery without angina pectoris; Z79.899 Other long term (current) drug therapy; Z79.891 Long term (current) use of opiate analgesic; Z79.84 Long term (current) use of oral hypoglycemic drugs; Z79.01 Long term (current) use of anticoagulants
CPT/HCPCS: 36415; 71045; 80048; 80061; 82550; 82553; 82962; 83036; 84484; 85025; 85520; 85610; 85730; 92928; 92978; 93005; 93306; 93458; G0378; A9270-GY; C1725; C1753; C1769; C1874; C1887; C1894; C9600; J1644; J2250; J2270; J2405; J3010; J7030; J7040; Q9967